=== PATIENT | female | born 1980 | race Caucasian/White ===

== ENCOUNTER 2017-01-13 17:47 | Emergency (ER) | payer SELFPAY ==
[~2017-01-13] VITALS: Ht 157.5 cm; Wt 55.0 kg
[~2017-01-13 17:47] MED LIST: LEVO750T26 PO
[2017-01-13] MEDS ORDERED: LORazepam 2 MG/ML, 1ML ONE ×2 (18:17→19:01)
[2017-01-13] MEDS ORDERED: PLEASE ENTER HEIGHT AND WEIGHT MC SCH (18:30)
[2017-01-13] MEDS ORDERED: PLEASE ENTER ALLERGIES MC SCH ×2 (18:30)
[2017-01-13] MEDS ORDERED: LORazepam 2 MG/ML, 1ML IVPush ONE ×2 (18:30→19:00)
[2017-01-13 18:48] LABS: ASPARTATE AMINO TRANSFERASE 68 U/L (15-37); BLOOD UREA NITROGEN 10 mg/dL (7-18)
[2017-01-13 18:51] LABS: ACETAMINOPHEN < 2 mcg/mL (10-30)
[2017-01-13 19:44] LABS: DAU SCREEN DISCLAIMER
[2017-01-14 01:01] VITALS: BP 107/70
== END 2017-01-14 03:19 | disposition home or self-care (01) ==
LOC: EDBD 23:19 → ED 23:19 → MERGE 23:19 → ED 01-14 03:19
DX: F23 Brief psychotic disorder (principal); F12.10 Cannabis abuse, uncomplicated; F15.10 Other stimulant abuse, uncomplicated
CPT/HCPCS: 36415; 80053; 80307; 80329; 81003; 85025; 93005; 96374; 96376; 99285; J2060; G0480

== ENCOUNTER 2017-01-17 12:37 | Observation (INO) | payer SELFPAY ==
[~2017-01-17] VITALS: Ht 152.4 cm; Wt 54.0 kg
[2017-01-17] MEDS ORDERED: ZIPRASIDONE 20 MG INJ IM ONE ×2 (12:56→13:00)
[2017-01-17] MEDS ORDERED: LORazepam 2 MG/ML, 1ML ONE (12:56)
[2017-01-17] MEDS ORDERED: LORazepam 2 MG/ML, 1ML IM ONE (13:00)
[2017-01-17 13:35] LABS: ASPARTATE AMINO TRANSFERASE 56 U/L (15-37); BLOOD UREA NITROGEN 22 mg/dL (7-18)
[2017-01-17 13:45] LABS: ACETAMINOPHEN < 2 mcg/mL (10-30)
[2017-01-17] MEDS ORDERED: LORazepam 1MG TABLET PO ONE (19:30)
[2017-01-17] MEDS ORDERED: BISACODYL 10 MG SUPP PR PRN (20:00)
[2017-01-17] MEDS ORDERED: DOCUSATE 100 MG CAPSULE PO PRN (20:00)
[2017-01-17] MEDS ORDERED: ACETAMINOPHEN 325 MG TABLET PO PRN (20:00)
[2017-01-17] MEDS ORDERED: POLYETHYLENE GLYCOL 17 GM PACKET PO PRN (20:00)
[2017-01-17] MEDS ORDERED: ONDANSETRON ODT 4 MG PO PRN (20:00)
[2017-01-17 21:40] LABS: DAU SCREEN DISCLAIMER
[2017-01-17] MEDS: ZIPRASIDONE 20MG CAPSULE PO PRN (22:26)
[2017-01-18 07:54] VITALS: BP 93/53
[2017-01-18 09:29] LABS: BLOOD UREA NITROGEN 19 mg/dL (7-18)
[2017-01-18] MEDS: ZIPRASIDONE 20MG CAPSULE PO PRN (11:26)
[2017-01-18 13:51] LABS: PATH.CAST-FLAG NOT PRESENT; SPERM-FLAG NOT PRESENT; SRC-FLAG NOT PRESENT; XTAL-FLAG NOT PRESENT; YLC-FLAG NOT PRESENT
[2017-01-18 13:54] LABS: HCG UR OBC PASS
[2017-01-18 15:57] VITALS: BP 105/67
[2017-01-18 19:28] VITALS: BP 104/69
[2017-01-19] MEDS: ZIPRASIDONE 20MG CAPSULE PO PRN (03:31)
[2017-01-19 07:25] VITALS: BP 110/53
[2017-01-19] MEDS ORDERED: NICOTINE 14MG/24 HR PATCH.TD24 ONE (18:08)
[2017-01-19 19:31] VITALS: BP 129/75
[2017-01-20 07:44] VITALS: BP 124/71
[2017-01-20 19:39] VITALS: BP 106/69
[2017-01-21 08:18] VITALS: BP 106/67
[2017-01-21] MEDS ORDERED: BISACODYL 10 MG SUPP PR PRN (19:30)
[2017-01-21] MEDS ORDERED: POLYETHYLENE GLYCOL 17 GM PACKET PO PRN (19:30)
[2017-01-21 20:18] VITALS: BP 130/93
[2017-01-21] MEDS: ACETAMINOPHEN 325 MG TABLET PO PRN (23:40)
[2017-01-22 08:24] VITALS: BP 112/80
[2017-01-22] MEDS: ACETAMINOPHEN 325 MG TABLET PO PRN (11:30)
[2017-01-22 19:49] VITALS: BP 111/74
[2017-01-22] MEDS ORDERED: MICONAZOLE 7 VAG. CRM 2%, 45GM VG SCH (21:00)
[2017-01-22] MEDS: ZIPRASIDONE 20MG CAPSULE PO PRN (21:24)
[2017-01-22] MEDS ORDERED: ALUMINUM/MAG/SIMETHICONE 30 ML UDC PO ONE (22:30)
[2017-01-23 07:25] VITALS: BP 128/82
[2017-01-23 10:51] VITALS: BP 99/69
== END 2017-01-23 12:00 ==
LOC: ED 14:13 → EDIP 21:08 → 3E 22:08
PROVIDERS: ADMIT Internal Medicine; ATTEND Internal Medicine
DX: F29 Unspecified psychosis not due to a substance or known physiological condition (principal); D72.829 Elevated white blood cell count, unspecified; N17.0 Acute kidney failure with tubular necrosis; D75.89 Other specified diseases of blood and blood-forming organs; N89.8 Other specified noninflammatory disorders of vagina; B37.3 Candidiasis of vulva and vagina; F20.9 Schizophrenia, unspecified; Z91.14 Patient's other noncompliance with medication regimen; Z91.83 Wandering in diseases classified elsewhere
CPT/HCPCS: 36415; 80048; 80053; 80307; 80329; 81001; 81025; 84443; 85025; 87086; 96372; 99285; G0378; J2060; J3486; Q0162; G0480

== ENCOUNTER 2017-03-26 04:23 | Emergency (ER) | payer MEDICAID, OTHER ==
[~2017-03-26] VITALS: Ht 149.9 cm; Wt 50.6 kg
[2017-03-26 04:25] VITALS: BP 123/79
== END 2017-03-26 05:29 | disposition home or self-care (01) ==
LOC: ED 05:03
DX: J20.8 Acute bronchitis due to other specified organisms (principal)
CPT/HCPCS: 99283

== ENCOUNTER 2017-08-25 19:38 | Emergency (ER) | payer MEDICAID ==
[~2017-08-25] VITALS: Ht 160 cm; Wt 50.0 kg
[2017-08-25] MEDS ORDERED: ZIPRASIDONE 20 MG INJ IM ONE ×2 (20:40→21:00)
[2017-08-25] MEDS ORDERED: PLEASE ENTER ALLERGIES MC SCH (21:00)
[2017-08-26 03:09] VITALS: BP 112/69
== END 2017-08-26 04:21 | disposition home or self-care (01) ==
LOC: EDBD → MERGE 19:38 → ED 23:59
DX: F15.129 Other stimulant abuse with intoxication, unspecified (principal)
CPT/HCPCS: 96372; 99283; J3486

== ENCOUNTER 2017-08-27 19:33 | Emergency (ER) | payer MEDICAID ==
[~2017-08-27] VITALS: Ht 152.4 cm; Wt 50.0 kg
[2017-08-27] MEDS ORDERED: HALOPERIDOL 5 MG/ML ONE (19:54)
[2017-08-27] MEDS ORDERED: DIPHENHYDRAMINE 50 MG/ML, 1ML ONE (19:54)
[2017-08-27] MEDS ORDERED: LORazepam 2 MG/ML, 1ML ONE ×2 (19:55→23:03)
[2017-08-27] MEDS ORDERED: SODIUM CHLORIDE 0.9% 1,000ML IVBOLUS ONE (20:00)
[2017-08-27] MEDS ORDERED: LORazepam 2 MG/ML, 1ML IM ONE (20:00)
[2017-08-27] MEDS ORDERED: HALOPERIDOL 5 MG/ML IM ONE (20:00)
[2017-08-27] MEDS ORDERED: DIPHENHYDRAMINE 50 MG/ML, 1ML IM ONE (20:00)
[2017-08-27] MEDS ORDERED: PLEASE ENTER HEIGHT AND WEIGHT MC SCH (20:00)
[2017-08-27 20:07] LABS: BASOPHILS # (AUTO) 0.08 x10^3/uL (0-0.1); BASOPHILS % (AUTO) 1 % (0-1); EOSINOPHILS # (AUTO) 0.07 x10^3/uL (0-0.4); EOSINOPHILS % (AUTO) 1 % (1-7); LYMPHOCYTES # (AUTO) 3.19 x10^3/uL (1-3.4); LYMPHOCYTES % (AUTO) 28 % (22-44); MD NO; MEAN CORPUSCULAR HEMOGLOBIN 28.5 pg (27.0-34.8); MEAN CORPUSCULAR HGB CONC 33.4 g/dL (32.4-35.8); MEAN CORPUSCULAR VOLUME 85.3 fL (80-100); MEAN PLATELET VOLUME 6.6 fL (7.4-10.4); MONOCYTES % (AUTO) 8 % (2-9); NEUTROPHILS # (AUTO) 7.07 x10^3/uL (1.8-6.8); NEUTROPHILS % (AUTO) 63 % (42-75); PLATELET COUNT 446 x10^3/uL (130-400); RED BLOOD COUNT 4.44 x10^6/uL (3.82-5.3); RED CELL DISTRIBUTION WIDTH 14.4 % (9.6-15.2)
[2017-08-27 20:15] LABS: ALBUMIN 3.5 g/dL (3.4-5.0); ANION GAP 9 mmol/L (5-15); CALCIUM 8.7 mg/dL (8.5-10.1); CHLORIDE 106 mmol/L (98-107); SALICYLATE LEVEL 2.9 mg/dL (2.8-20.0)
[2017-08-27 20:20] LABS: ALANINE AMINOTRANSFERASE 64 U/L (12-78); ALKALINE PHOSPHATASE 100 U/L (45-117); BILIRUBIN,TOTAL 0.3 mg/dL (0.2-1.0); CREATININE 0.89 mg/dL (0.55-1.02); TOTAL PROTEIN 7.7 g/dL (6.4-8.2)
[2017-08-27 20:23] LABS: ACETAMINOPHEN < 2 mcg/mL (10-30)
[2017-08-27] MEDS ORDERED: LORazepam 2 MG/ML, 1ML IVPush ONE (23:30)
[2017-08-28 05:24] VITALS: BP 124/72
== END 2017-08-28 05:26 | disposition home or self-care (01) ==
LOC: ED 20:36
DX: F19.151 Other psychoactive substance abuse with psychoactive substance-induced psychotic disorder with hallucinations (principal); F15.10 Other stimulant abuse, uncomplicated; Z72.9 Problem related to lifestyle, unspecified; F22 Delusional disorders
CPT/HCPCS: 36415; 80053; 80307; 80329; 84703; 85025; 96361; 96372; 96374; 99291; J1200; J1630; J2060; J7030; G0480

== ENCOUNTER 2017-09-03 10:27 | Emergency (ER) | payer MEDICAID ==
[2017-09-03] MEDS ORDERED: ZIPRASIDONE 20MG CAPSULE PO SCH (10:30)
[2017-09-03] MEDS ORDERED: ZIPRASIDONE 20MG CAPSULE ONE (10:34)
[2017-09-03] MEDS ORDERED: ZIPRASIDONE 20MG CAPSULE PO ONE (11:00)
== END 2017-09-03 11:10 | disposition left against medical advice (07) ==
LOC: ED 11:04
DX: F23 Brief psychotic disorder (principal)
CPT/HCPCS: 99284

== ENCOUNTER 2018-05-15 09:27 | Emergency (ER) | payer SELFPAY ==
[~2018-05-15] VITALS: Ht 165.1 cm; Wt 70.0 kg
[2018-05-15] MEDS ORDERED: LORazepam 2 MG/ML, 1ML ONE (09:49)
[2018-05-15] MEDS ORDERED: ZIPRASIDONE 20 MG INJ IM PRN (10:00)
[2018-05-15] MEDS ORDERED: LORazepam 2 MG/ML, 1ML IM ONE (10:00)
[2018-05-15 10:17] LABS: BASOPHILS # (AUTO) 0.07 x10^3/uL (0-0.1); BASOPHILS % (AUTO) 1 % (0-1); EOSINOPHILS # (AUTO) 0.05 x10^3/uL (0-0.4); EOSINOPHILS % (AUTO) 0 % (1-7); LYMPHOCYTES # (AUTO) 1.26 x10^3/uL (1-3.4); LYMPHOCYTES % (AUTO) 9 % (22-44); MD NO; MEAN CORPUSCULAR HGB CONC 34.2 g/dL (32.4-35.8); MEAN CORPUSCULAR VOLUME 87.8 fL (80-100); MEAN PLATELET VOLUME 6.7 fL (7.4-10.4); MONOCYTES # (AUTO) 0.75 x10^3/uL (0.2-0.8); MONOCYTES % (AUTO) 6 % (2-9); NEUTROPHILS # (AUTO) 11.65 x10^3/uL (1.8-6.8); NEUTROPHILS % (AUTO) 85 % (42-75); PLATELET COUNT 382 x10^3/uL (130-400); RED CELL DISTRIBUTION WIDTH 12.5 % (9.6-15.2)
[2018-05-15 10:30] LABS: ALBUMIN 3.9 g/dL (3.4-5.0); ANION GAP 9 mmol/L (5-15); CALCIUM 8.9 mg/dL (8.5-10.1); CHLORIDE 103 mmol/L (98-107)
[2018-05-15 10:31] LABS: SALICYLATE LEVEL < 1.7 mg/dL (2.8-20.0)
[2018-05-15] MEDS ORDERED: ZIPRASIDONE 20 MG INJ IM ONE (10:33)
[2018-05-15 10:34] LABS: ACETAMINOPHEN < 2 mcg/mL (10-30); ALANINE AMINOTRANSFERASE 53 U/L (12-78); ALKALINE PHOSPHATASE 99 U/L (45-117); BILIRUBIN,TOTAL 0.4 mg/dL (0.2-1.0); CREATININE 0.71 mg/dL (0.55-1.02); TOTAL PROTEIN 7.5 g/dL (6.4-8.2)
[2018-05-15] MEDS ORDERED: POTASSIUM CHLORIDE 20 MEQ TAB.ER.PRT PO ONE (12:30)
[2018-05-15 16:49] VITALS: BP 95/48
== END 2018-05-15 17:35 | disposition home or self-care (01) ==
LOC: ED 10:00
DX: F15.120 Other stimulant abuse with intoxication, uncomplicated (principal); E87.6 Hypokalemia
CPT/HCPCS: 36415; 70450; 71045; 80053; 80307; 80329; 85025; 96372; 99285; J2060; J3486; G0480

== ENCOUNTER 2018-06-16 17:11 | Emergency (ER) | payer MEDICAID, OTHER ==
[~2018-06-16] VITALS: Ht 160 cm; Wt 58.0 kg
[2018-06-16 18:04] VITALS: BP 119/65
== END 2018-06-16 19:52 | disposition home or self-care (01) ==
LOC: ED 18:03
DX: F15.229 Other stimulant dependence with intoxication, unspecified (principal); F20.9 Schizophrenia, unspecified
CPT/HCPCS: 99283

== ENCOUNTER 2018-07-26 03:55 | Emergency (ER) | payer OTHER ==
[~2018-07-26] VITALS: Ht 162.6 cm; Wt 45.5 kg
--- NOTE | 2018-07-26 04:11 | NUR ---
PT. AMBULATORY TO ED 40; PT. FLAILING AROUND AND ONLY MAKES GRUNTIG SOUNDS. UNABLE TO OBTAIN INFO; PT. STATES "TOO MUCH METH".
--- NOTE | 2018-07-26 04:16 | NUR ---
PT PRESENTED WITH C/O " I DID TOO MUCH METH", PT VERY RESTLESS AND MAKING GRUNTING NOISES, PT IRRATICALLY MAKING JERKING MOVEMENTS ON BED, PLACED MATTRESS ON FLOOR FOR PT SAFETY, AWAITING ERP FOR EVAL
--- NOTE | 2018-07-26 04:24 | NUR ---
FOUND PT WANDERING IN [place], ASSISTED PT BACK TO ROOM, PT ASKING FOR SNACKS, ABLE TO MAINTAIN OWN AIRWAY, GARAGE DOORS DOWN FOR PT SAFETY.
--- NOTE | 2018-07-26 04:31 | NUR ---
VS DONE AT THIS TIME, PT WITH PERIODS OF BEING ABLE TO BE STILL, ANY NOISE OR INTERACTIONS AND PT BECOMES UNABLE TO BE STILL. NOTED TO HAVE BRUISE R EYE, APPEAR OLDER, BRUISE NOTED R FORARM WELL. PT THEN ASKING FOR OMAR
[2018-07-26] MEDS ORDERED: ZIPRASIDONE 20 MG INJ IM ONE ×2 (04:43→05:00)
--- NOTE | 2018-07-26 04:55 | NUR ---
Jaycee cheng in [facility] - 07/26/18 at 0456 by HERRERA PROVIDED PT WITH PO FLUIDS, PT TOLERATED WELL, REID N/V
--- NOTE | 2018-07-26 04:55 | NUR ---
PT MEDICATED PER MAR
--- NOTE | 2018-07-26 05:13 | NUR ---
PT RESTING ON MATRESS WITH EYES CLOSED, SNORING, NADN, EQUAL CHEST RISE/FALL OBSERVED, WILL CONTINUE TO MONITOR
--- NOTE | 2018-07-26 06:21 | NUR ---
PT RESTING WITH EYES CLOSED, NADN, RESPIRATIONS EVEN AND UNLABORED, PROVIDED PT WITH WARM BLANKET, WILL CONTINUE TO MONITOR.
--- NOTE | 2018-07-26 06:48 | NUR ---
report given to nicolle martines
--- NOTE | 2018-07-26 07:10 | NUR ---
PT TWO PERSON ASSIST TO BATHROOM. PT VERY UNSTEADY AND NOT FOLLOWING COMMANDS. PT WALKED BACK TO ROOM. PT LAYING ON MATTRESS. ALL MONITORS ATTACHED. PT COVERED UP WITH BLANKETS. WILL CONTINUE TO MONITOR
--- NOTE | 2018-07-26 08:00 | NUR ---
PT STILL SLEEPING ON MATTRESS. RESPS EQUAL AND UNLABORED. NO ACUTE DISTRESS NOTED. WILL CONTINUE TO MONITOR.
--- NOTE | 2018-07-26 09:04 | NUR ---
PT SLEEPING ON MATTRESS. NO ACUTE DISTRESS NOTED. RESPS EQUAL AND UNLABORED. WILL CONTINUE TO MONITOR.
--- NOTE | 2018-07-26 09:12 | NUR ---
DIET TRAY DELIVERED TO PT
--- NOTE | 2018-07-26 10:21 | NUR ---
PT SLEEPING ON MATTRESS. RESPS EQUAL AND UNLABORED. NO ACUTE DISTRESS NOTED. PT HAS REMOVED SOME MONITORS. WILL CONTINUE TO MONITOR.
[2018-07-26 10:22] VITALS: BP 116/66
--- NOTE | 2018-07-26 12:14 | NUR ---
PT AMBULATORY WITH ASSISTANCE TO BATHROOM. PT ALERT. PT STATES "MY BALANCE IS A LITTLE OFF STILL." PT ATE DIET TRAY. NO ACUTE DISTRESS NOTED.
--- NOTE | 2018-07-26 13:07 | NUR ---
Patient/Caregiver given discharge instructions and they have confirmed that they understand the instructions. Patient ambulatory with steady gait. PT GIVEN SOCKS. PT LEFT WITH ALL PERSONAL BELONGINGS.
== END 2018-07-26 13:09 | disposition home or self-care (01) ==
LOC: ED 04:39
DX: T43.625A Adverse effect of amphetamines, initial encounter (principal); F20.9 Schizophrenia, unspecified; Z72.9 Problem related to lifestyle, unspecified; Z87.09 Personal history of other diseases of the respiratory system; Y92.89 Other specified places as the place of occurrence of the external cause
CPT/HCPCS: 96372; 99283; J3486

== ENCOUNTER 2018-07-30 15:08 | Emergency (ER) | payer OTHER ==
[~2018-07-30] VITALS: Ht 157.5 cm; Wt 45.0 kg
--- NOTE | 2018-07-30 15:08 | NUR ---
BECKIE from [facility] ([place]) after [employer] called, pt delirious with nonsensical speech/gibberish & occas shouting of profanity, does not answer questions or follow commands, very restless with constant thrashing on gurney, arrived in 4-pt restraints & continued on arrival for pt safety, no personal belongings on arrival; cardiac, NIBP & SpO2 monitors in place- unable to obtain BP d/t pt thrashing; comfort measures provided, will continue to monitor frequently.
[2018-07-30] MEDS ORDERED: ZIPRASIDONE 20 MG INJ IM ONE ×2 (15:54→16:00)
[2018-07-30] MEDS ORDERED: LORazepam 2 MG/ML, 1ML ONE ×2 (15:55→23:12)
[2018-07-30 16:00] LABS: BASOPHILS # (AUTO) 0.06 x10^3/uL (0-0.1); BASOPHILS % (AUTO) 0 % (0-1); EOSINOPHILS # (AUTO) 0.04 x10^3/uL (0-0.4); EOSINOPHILS % (AUTO) 0 % (1-7); LYMPHOCYTES # (AUTO) 1.87 x10^3/uL (1-3.4); LYMPHOCYTES % (AUTO) 13 % (22-44); MD NO; MEAN CORPUSCULAR HEMOGLOBIN 28.5 pg (27.0-34.8); MEAN CORPUSCULAR HGB CONC 33.1 g/dL (32.4-35.8); MEAN CORPUSCULAR VOLUME 86.3 fL (80-100); MEAN PLATELET VOLUME 6.4 fL (7.4-10.4); MONOCYTES # (AUTO) 1.08 x10^3/uL (0.2-0.8); MONOCYTES % (AUTO) 7 % (2-9); NEUTROPHILS % (AUTO) 80 % (42-75); PLATELET COUNT 461 x10^3/uL (130-400); RED BLOOD COUNT 4.35 x10^6/uL (3.82-5.3); RED CELL DISTRIBUTION WIDTH 14.3 % (9.6-15.2)
[2018-07-30] MEDS ORDERED: LORazepam 2 MG/ML, 1ML IM ONE ×2 (16:00→23:30)
--- NOTE | 2018-07-30 16:02 | NUR ---
pt continues to thrash around on gurney with mostly incoherent yelling out, med icated per eMAR. NAD, comfort measures provided, pt remains in 4-pt restraints, will continue to monitor frequently.
[2018-07-30 16:10] LABS: ALANINE AMINOTRANSFERASE 62 U/L (12-78); ALBUMIN 3.7 g/dL (3.4-5.0); ANION GAP 5 mmol/L (5-15); CALCIUM 9.3 mg/dL (8.5-10.1); CHLORIDE 103 mmol/L (98-107); CREATININE 0.81 mg/dL (0.55-1.02)
[2018-07-30 16:21] LABS: ALKALINE PHOSPHATASE 96 U/L (45-117); BILIRUBIN,TOTAL 0.4 mg/dL (0.2-1.0); SALICYLATE LEVEL 3.5 mg/dL (2.8-20.0); TOTAL PROTEIN 7.3 g/dL (6.4-8.2)
[2018-07-30 16:33] LABS: ACETAMINOPHEN < 2 mcg/mL (10-30)
--- NOTE | 2018-07-30 17:01 | NUR ---
pt sleeping calmly on gurney, NAD with equal chest rise/fall, VSS (see Behavior Management Restraint Reocrd), no needs at this time, pt remains in 4-pt restraints, will continue to monitor frequently.
--- NOTE | 2018-07-30 18:00 | NUR ---
pt continues to sleep calmly on gurney, NAD with equal chest rise/fall, no needs at this time, pt remains in 4-pt restraints, will continue to monitor frequently. Addendum: 07/30/18 at 1814 by NATALIE pt continues to mostly sleep calmly on gurney but restless at times, NAD with equal chest rise/fall, no needs at this time, pt remains in 4-pt restraints, will continue to monitor frequently.
--- NOTE | 2018-07-30 19:07 | NUR ---
report given to Neo
--- NOTE | 2018-07-30 19:15 | NUR ---
RESTRAINT ORDER RENEWED WITH MD RGEENBERG. DID EVAL AT BEDSIDE. RESTRAINTS WERE CHECKED AT THIS TIME AND ONE HOLDING UPPER EXTREMITY WAS TOO TIGHT, SO WAS LOOSENED FOR PT. PT STILL REMAINS IN RESTRAINT DUE SAFETY ISSUES.
--- NOTE | 2018-07-30 20:24 | NUR ---
PT REMAINS IN RESTRAINTS. PT IS STILL VERY ERRATIC WITH POSTURING TOWARDS STAFF. WILL REEVALUATE IN 30 MINUTES.
--- NOTE | 2018-07-30 22:27 | NUR ---
PT REMAINS RESTLESS, PULLING AT RESTRAINTS. PT UNABLE TO RECOGNIZE STAFF STILL. PT SPEAKING INCOHERENTLY. PT UNABLE TO FOLLOW COMMANDS AND UNABLE TO IVY DOWN. PT AT THIS TIME TO REMAIN IN RESTRAINTS SHE POSES DANGER TO SELF AND STAFF DUE TO POSSIBLE ACUTE PSYCHOSIS SECODNARY TO DRUG ABUSE PER MD.
--- NOTE | 2018-07-30 22:37 | NUR ---
MD RAMÍREZ ASKED FOR RESTRAINT EXTENTION PT IS NOT READY TO BE REMOVED FROM RESTRAINTS AT THIS TIME. ORDER GIVEN AND SIGNED.
--- NOTE | 2018-07-30 23:00 | NUR ---
PT SPEAKING MORE CLEARLY. STILL UNABLE TO FORM COMPLETE SENTANCES BUT WORDS ARE UNDERSTANDABLE. PT GIVEN 2MG IM ATIVIAN TO HELP CALM DOWN SHE IS VERY ANXIOUS AND MANIC. PT SAID "I WANT TO SLEEP, SLEEP, SLEEP" SO PT TAKEN OUT OF RESTRAINTS AND PT REMAINS IN BED AT THIS TIME. WILL CONTINUE TO MONITOR.
--- NOTE | 2018-07-30 23:45 | NUR ---
Jaycee cheng in ED - 07/30/18 at 2346 by SUSI PT THANH IN BED THAT IS A CAMERA ROOM. GEOVANY, EQUAL CHEST RISE AND GOOD CAP REFILL.
--- NOTE | 2018-07-30 23:46 | NUR ---
PT REMIAINS IN BED THAT IS A CAMERA ROOM. NADN, EQUAL CHEST RISE AND GOOD CAP REFILL.
--- NOTE | 2018-07-31 00:17 | NUR ---
RECEIVED REPORT FROM ALEJO DE LA TORRE. PT. CURLED UP IN POSITION LEFT SIDE LYING. EVEN CHEST RISE/FALL VISIBLE. PT. HAS CONTINUOUS PULSE OX, B/P, AND HEART MONITORS IN PLACE. ALL SAFETY MEASURES OBSERVED.
--- NOTE | 2018-07-31 01:24 | NUR ---
PT. RESTING ON GURNEY IN POSITION RIGHT SIDE LYING. PT. HAS CONTINUOUS PULSE OX, B/P, AND HEART MONITORS IN PLACE. ALL SAFETY MEASUERS OSBERVED.
[2018-07-31 02:25] VITALS: BP 125/65
== END 2018-07-31 02:38 | disposition home or self-care (01) ==
LOC: ED 15:30
DX: R45.1 Restlessness and agitation (principal)
CPT/HCPCS: 36415; 80053; 80307; 80329; 84703; 85025; 96372; 99283; J2060; J3486; G0480

== ENCOUNTER 2018-08-11 00:11 | Emergency (ER) | payer SELFPAY ==
[~2018-08-11] VITALS: Ht 157.5 cm; Wt 50.0 kg
[2018-08-11 00:15] VITALS: BP 103/69
[2018-08-11] MEDS ORDERED: ZIPRASIDONE 20 MG INJ IM ONE ×2 (00:22→00:30)
--- NOTE | 2018-08-11 00:27 | NUR ---
PT BIBA IN [facility] RESTRAINTS DUE TO AGGITATION. PT WAS FOUND BY [employer] HIDING IN A DUMPSTER WITHOUT PANTS. PT IS ACUTELY INTOXICATED AND STATES "I DO METH AND BREAK INTO HOUSES." PT DOES NOT RESPOND APPROPRIATELY. YELLS INCOMPREHENSIBLE WORDS. PT IS AGGITATED AND UNCOOPERATIVE WITH TREATMENT ATT.
[2018-08-11 00:35] LABS: BASOPHILS # (AUTO) 0.02 x10^3/uL (0-0.1); BASOPHILS % (AUTO) 0 % (0-1); EOSINOPHILS # (AUTO) 0.01 x10^3/uL (0-0.4); EOSINOPHILS % (AUTO) 0 % (1-7); LYMPHOCYTES # (AUTO) 1.88 x10^3/uL (1-3.4); LYMPHOCYTES % (AUTO) 17 % (22-44); MD NO; MEAN CORPUSCULAR HEMOGLOBIN 28.3 pg (27.0-34.8); MEAN CORPUSCULAR VOLUME 83.4 fL (80-100); MEAN PLATELET VOLUME 6.5 fL (7.4-10.4); MONOCYTES # (AUTO) 0.88 x10^3/uL (0.2-0.8); MONOCYTES % (AUTO) 8 % (2-9); NEUTROPHILS # (AUTO) 8.19 x10^3/uL (1.8-6.8); NEUTROPHILS % (AUTO) 75 % (42-75); PLATELET COUNT 433 x10^3/uL (130-400); RED BLOOD COUNT 4.51 x10^6/uL (3.82-5.3); RED CELL DISTRIBUTION WIDTH 15.3 % (9.6-15.2)
--- NOTE | 2018-08-11 00:35 | NUR ---
PT MEDICATED PER EMAR
[2018-08-11 00:47] LABS: ALANINE AMINOTRANSFERASE 46 U/L (12-78); ALBUMIN 3.6 g/dL (3.4-5.0); ANION GAP 10 mmol/L (5-15); CALCIUM 9.3 mg/dL (8.5-10.1); CHLORIDE 103 mmol/L (98-107); SALICYLATE LEVEL 2.1 mg/dL (2.8-20.0)
[2018-08-11 00:49] LABS: ALKALINE PHOSPHATASE 103 U/L (45-117); BILIRUBIN,TOTAL 0.4 mg/dL (0.2-1.0); TOTAL PROTEIN 7.2 g/dL (6.4-8.2)
[2018-08-11 00:55] LABS: ACETAMINOPHEN < 2 mcg/mL (10-30)
--- NOTE | 2018-08-11 02:00 | NUR ---
PT IS CALMER AND MORE COOPERATIVE ATT. ABLE TO ANSWER QUESTIONS APPROPRIATELY. PT RELEASED FROM RESTRAINTS AND PROVIDED WITH FOOD AND WATER.
--- NOTE | 2018-08-11 02:46 | NUR ---
PT REPORT FROM TRISH DHILLON. THIS RN TO ASSUME CARE OF PT. PT RESTING COMFORTABLY ON GURNEY. ROLLER DOORS IN PLACE. CALL LIGHT WITHIN REACH.
--- NOTE | 2018-08-11 05:19 | NUR ---
PT COHERENT AND A+Ox4. GIVEN SOCKS AND PANTS FOR D/C. STATES READY TO D/C.
== END 2018-08-11 05:25 | disposition home or self-care (01) ==
LOC: EDBD 00:11 → ED 03:56 → MERGE 03:56 → ED 05:25
DX: F29 Unspecified psychosis not due to a substance or known physiological condition (principal); F22 Delusional disorders; F15.129 Other stimulant abuse with intoxication, unspecified; F24 Shared psychotic disorder
CPT/HCPCS: 36415; 80053; 80307; 80329; 85025; 96372; 99284; J3486; G0480

== ENCOUNTER 2018-08-13 13:40 | Emergency (ER) | payer SELFPAY ==
[~2018-08-13] VITALS: Ht 160 cm; Wt 115.0 kg
[2018-08-13] MEDS ORDERED: LORazepam 1MG TABLET ONE (13:49)
--- NOTE | 2018-08-13 13:59 | NUR ---
LAURA CALLED FOR SITTER FOR PT'S SAFETY D/T PT'S CONTINUOUS ERRATIC MOVEMENTS D/T DRUG USE
[2018-08-13 14:00] VITALS: BP 120/83
[2018-08-13] MEDS ORDERED: LORazepam 1MG TABLET PO ONE (14:00)
--- NOTE | 2018-08-13 14:07 | NUR ---
PT BIB [facility] AFTER MULTIPLE CALLS FOR ERRATIC BEHAVIOR. PT HAS NO MEDICAL COMPLAINTS, REPORTS USING CRYSTAL METH TODAY, BEHAVING THOUGH SHE DID METH TODAY.
--- NOTE | 2018-08-13 15:13 | NUR ---
PROVIDED PT WITH NEW PANTS
[2018-08-13] MEDS ORDERED: MIDAZOLAM 1 MG/ML, 2ML ONE (16:57)
== END 2018-08-13 15:31 | disposition left against medical advice (07) ==
LOC: ED 15:25
DX: F15.959 Other stimulant use, unspecified with stimulant-induced psychotic disorder, unspecified (principal); F20.9 Schizophrenia, unspecified
CPT/HCPCS: 99283

== ENCOUNTER 2018-08-13 16:22 | Emergency (ER) | payer SELFPAY ==
[~2018-08-13] VITALS: Ht 157.5 cm; Wt 50.0 kg
[2018-08-13] MEDS ORDERED: LORazepam 1MG TABLET ONE (16:34)
[2018-08-13] MEDS ORDERED: LORazepam 1MG TABLET PO ONE (17:00)
[2018-08-13] MEDS ORDERED: MIDAZOLAM 1 MG/ML, 5ML IM ONE (17:00)
--- NOTE | 2018-08-13 18:27 | NUR ---
pt is resting on gurney. rr even and unlabored. pt on cont. spo2 and bp monitor, vss. pt denies needs or pain att.
--- NOTE | 2018-08-13 18:57 | NUR ---
BS REPORT OF PT FROM ALEJO CHAMBERS, AND ASSUMING CARE OF PT.
--- NOTE | 2018-08-13 21:09 | NUR ---
pt sleeping in gurney; pt under observation for substance abuse, and being monitored as such. Call light is within reach.
[2018-08-13 21:38] VITALS: BP 100/63
--- NOTE | 2018-08-13 23:21 | NUR ---
pt d/c with d/c summary. pt provided socks and warm sweater and put in a taxi with [facility] taxi voucher for d/c to homeless half-way. pt escorted out front into taxi by security.
== END 2018-08-13 23:24 | disposition home or self-care (01) ==
LOC: ED 16:59
DX: F15.129 Other stimulant abuse with intoxication, unspecified (principal)
CPT/HCPCS: 96372; 99283; J2250

== ENCOUNTER 2018-08-21 06:23 | Emergency (ER) | payer SELFPAY ==
[~2018-08-21] VITALS: Ht 157.5 cm; Wt 44.7 kg
[2018-08-21 06:30] VITALS: BP 121/76
--- NOTE | 2018-08-21 06:30 | NUR ---
38 YR OLD FEMALE ARRIVED VIA LAW ENFORCEMENT. PT WITH NO CLOTHS ON FROM WAIST DOWN. NO SOCKS OR SHOES ON. PT WITH RAMBLING SPEECH. PT MOVES SELF FREQUENTLY ON GURNEY. NOT ANSWERING QUESTIONS. PT COOPERATIVE WITH UPPER CLOTHING REMOVAL. PLACED IN HOSPITAL GOWN, PROVIDED WITH WARM BLANKETS. ROOM SECURED, SITTER AT DOOR.
--- NOTE | 2018-08-21 06:35 | NUR ---
DR VUONG AT BEDSIDE TO EVAL PT.
--- NOTE | 2018-08-21 06:43 | NUR ---
ONE BAG OF CLOTHING TO LOCKED CABINET.
[2018-08-21] MEDS ORDERED: ZIPRASIDONE 20 MG INJ IM ONE ×2 (07:00→07:12)
--- NOTE | 2018-08-21 07:01 | NUR ---
REPORT TO JALEN DHILLON
--- NOTE | 2018-08-21 07:27 | NUR ---
Provided medication per EMAR. Provided chapstick for pt per request. Pt continues to hace incoherent and irradict speech with statments such as, "I am going to wail on you, I will fucking kill you." Pt requesting food. SI food tray ordered for breakfast. Sitter near doorway in direct line of sight for observation. NADN. All SI/HI precautions in place for safety.
--- NOTE | 2018-08-21 09:01 | NUR ---
Pt sleeping on gurindiana. NADN. No needs expressed. Sitter near doorway in direct line of sight for observation.
--- NOTE | 2018-08-21 10:18 | NUR ---
Pt provided snacks per request. Sitter near doorway in direct line of sight for observation. NADN. No needs expressed at this time.
--- NOTE | 2018-08-21 11:05 | NUR ---
Pt has been taken off hold by EDID. Pt has been medically cleared by EDID. Pt provided clothing, shoes, underwear, and socks for discharge. Pt ambulated with steady gait and balance to restroom. Pt's speech is coherent. Pt is getting dressed in ED room at this time. Pt provided with personal belongings.
--- NOTE | 2018-08-21 11:21 | NUR ---
Patient given discharge instructions and they have confirmed that they understand the instructions. Patient ambulatory with steady gait. Pt left with all personal belongings, extra snacks, clothing from ER donation closet, and shoes, and discharge paperwork. Pt walked to discharge desk. Pt appreciative.
== END 2018-08-21 11:24 | disposition home or self-care (01) ==
LOC: ED 07:35
DX: F15.929 Other stimulant use, unspecified with intoxication, unspecified (principal); F20.9 Schizophrenia, unspecified
CPT/HCPCS: 96372; 99283; J3486

== ENCOUNTER 2018-09-16 09:57 | Observation (INO) | payer SELFPAY ==
[~2018-09-16] VITALS: Ht 162.6 cm; Wt 60.0 kg
--- NOTE | 2018-09-16 10:12 | NUR ---
BIB [facility]-placed on [address] by [employer] officer who found pt walking in the street with no shoes, dirty, disheveled, agitated. Pt apparently was screaming at unseen persons that she was going to kill them. Pt was violent with EMS (punching, kicking) and was given Versed x2 PRODUCTION RECORDER. Pt presents to ED drowsy, arousable to verbal stimuli, intermittently agitated/aggressive with staff intervention. All pt clothing removed, placed in one bag, labeled and secured in locker. Pt placed in hospital gown and positioned for comfort in bed with blanket. Continuous oxygen and BP monitors applied, all safety measures observed.
[2018-09-16 10:49] LABS: BASOPHILS # (AUTO) 0.03 x10^3/uL (0-0.1); BASOPHILS % (AUTO) 0 % (0-1); EOSINOPHILS # (AUTO) 0.14 x10^3/uL (0-0.4); EOSINOPHILS % (AUTO) 2 % (1-7); LYMPHOCYTES # (AUTO) 1.32 x10^3/uL (1-3.4); LYMPHOCYTES % (AUTO) 19 % (22-44); MD NO; MEAN CORPUSCULAR HGB CONC 34.3 g/dL (32.4-35.8); MEAN CORPUSCULAR VOLUME 84.7 fL (80-100); MEAN PLATELET VOLUME 6.4 fL (7.4-10.4); MONOCYTES # (AUTO) 0.48 x10^3/uL (0.2-0.8); MONOCYTES % (AUTO) 7 % (2-9); NEUTROPHILS # (AUTO) 4.96 x10^3/uL (1.8-6.8); NEUTROPHILS % (AUTO) 72 % (42-75); PLATELET COUNT 431 x10^3/uL (130-400); RED BLOOD COUNT 4.51 x10^6/uL (3.82-5.3); RED CELL DISTRIBUTION WIDTH 15.7 % (9.6-15.2)
[2018-09-16 11:00] LABS: ALANINE AMINOTRANSFERASE 27 U/L (12-78); ALBUMIN 3.1 g/dL (3.4-5.0); ANION GAP 5 mmol/L (5-15); CALCIUM 8.9 mg/dL (8.5-10.1); CHLORIDE 109 mmol/L (98-107); CREATININE 0.81 mg/dL (0.55-1.02)
[2018-09-16 11:01] LABS: SALICYLATE LEVEL < 1.7 mg/dL (2.8-20.0)
[2018-09-16 11:02] LABS: ALKALINE PHOSPHATASE 132 U/L (45-117); BILIRUBIN,TOTAL 0.2 mg/dL (0.2-1.0); TOTAL PROTEIN 6.6 g/dL (6.4-8.2)
[2018-09-16 11:03] LABS: ACETAMINOPHEN < 2 mcg/mL (10-30)
--- NOTE | 2018-09-16 11:11 | NUR ---
Pt resting in bed with eyes closed, resp even and unlabored, NADN. Room remains secured, sitter within eyesight.
--- NOTE | 2018-09-16 12:01 | NUR ---
Pt continues resting in bed with eyes closed, resp even and unlabored, NADN. Room remains secured, sitter within eyesight.
--- NOTE | 2018-09-16 12:58 | NUR ---
Pt ambulatory to bathroom with steady gait. Requested pt collect urine sample. Pt verbalizes understanding.
--- NOTE | 2018-09-16 13:06 | NUR ---
Pt did not collect urine sample while in the bathroom, voided into toilet instead. Pt ambulatory back to room. Pt requesting food. Meal tray ordered. Room remains secured, sitter within eyesight.
[2018-09-16] MEDS ORDERED: HALOPERIDOL 5 MG/ML IM STA (13:27)
[2018-09-16] MEDS ORDERED: SODIUM CHLORIDE 0.9% 1,000 ML IV SCH (14:00)
[2018-09-16] MEDS ORDERED: HALOPERIDOL 5 MG/ML IVPush PRN (14:00)
[2018-09-16] MEDS ORDERED: ONDANSETRON ODT 4 MG PO PRN (14:00)
[2018-09-16] MEDS ORDERED: ACETAMINOPHEN 325 MG TABLET PO PRN (14:00)
[2018-09-16] MEDS ORDERED: POTASSIUM CHLORIDE 20 MEQ TAB.ER.PRT PO ONE (14:00)
[2018-09-16] MEDS ORDERED: LORazepam 2 MG/ML, 1ML IVPush PRN (14:00)
[2018-09-16] MEDS ORDERED: ONDANSETRON 2MG/ML, 2ML IVPush PRN (14:00)
--- NOTE | 2018-09-16 14:35 | NUR ---
PT REPORT FROM ALEJO CALLEJAS. PT CARE TO BE ASSUMED. PT CURRENTLY IN BR; SITTER AT DOOR.
--- NOTE | 2018-09-16 15:00 | NUR ---
PT ALTERNATING BETWEEN CALMNESS & YELLING, WALKING AROUND ROOM & SITTING ON GURNEY. HAVING CONVERSATION W/ SELF. SITTER AT ROOM.
[2018-09-16] MEDS ORDERED: HALOPERIDOL 5 MG/ML ONE (15:23)
--- NOTE | 2018-09-16 15:35 | NUR ---
HALDOL DOSE CONFIRMED W/ DR MONTANEZ: 10MG IM. SECURITY CALLED
--- NOTE | 2018-09-16 15:41 | NUR ---
SECURITY TO BS. HALODOL IM GIVEN PER EMAR.
--- NOTE | 2018-09-16 17:27 | NUR ---
LUNCH RN: PT RESTING IN BED. NADN. EQUAL CHEST RISE AND GOOD CAP REFILL. SITTER OUTSIDE ROOM FOR CONTINOUS MONITORING.
--- NOTE | 2018-09-16 17:35 | NUR ---
PT REPORT FROM BRITT Talbert RN. PT CARE TO BE ASSUMED. PT ASLEEP ON BED, RESP EVEN & UNLABORED, SIDE RAIL UP X1. SITTER AT ROOM. PER SITTER, PT GOT UP TWICE TO USE BATHROOM, NO URINE SPECIMEN PROVIDED.
[2018-09-16 18:52] LABS: AMPHETAMINE SCREEN, URINE Positive (Negative); BARBITURATE SCREEN, URINE Negative (Negative); BENZODIAZEPINE SCREEN, URINE Positive (Negative); CANNABINOID SCREEN, URINE Negative (Negative); COCAINE SCREEN, URINE Negative (Negative); METHADONE SCREEN, URINE Negative (Negative)
[2018-09-16 18:53] LABS: OPIATE SCREEN, URINE Negative (Negative)
[2018-09-16] MEDS ORDERED: POTASSIUM CHLORIDE 20 MEQ TAB.ER.PRT ONE (19:00)
--- NOTE | 2018-09-16 19:44 | NUR ---
PACKET WAS FAXED TO [facility] AND COMPLETED AT [id number].
--- NOTE | 2018-09-16 19:55 | NUR ---
PT DOZING ON BED; EASILY AWAKENED. SIDE RAIL UP X1. SITTER AT ROOM.
[2018-09-16] MEDS ORDERED: HALOPERIDOL 5 MG/ML IM PRN (20:00)
[2018-09-16] MEDS ORDERED: LORazepam 2 MG/ML, 1ML IM PRN (20:00)
--- NOTE | 2018-09-16 20:30 | NUR ---
DOZING ON BED, SIDE RAIL UP X1, RESP EVEN & UNLABORED, SITTER AT ROOM.
--- NOTE | 2018-09-16 21:09 | NUR ---
DINNER DELIVERED TO PT. PT NON-CONFRONTATIONAL, AT THIS TIME.
--- NOTE | 2018-09-16 21:45 | NUR ---
PT EVALUATED BY ALEJO ABURTO (2N)
--- NOTE | 2018-09-16 22:00 | NUR ---
PT TO BE ADMITTED TO 2N. PT REPORT TO ALEJO ABURTO FOR 2N.
[2018-09-16 22:20] VITALS: BP 106/63
[2018-09-16 22:32] VITALS: BP 106/63
[2018-09-17 05:43] LABS: BASOPHILS # (AUTO) 0.03 x10^3/uL (0-0.1); BASOPHILS % (AUTO) 0 % (0-1); EOSINOPHILS # (AUTO) 0.17 x10^3/uL (0-0.4); EOSINOPHILS % (AUTO) 3 % (1-7); LYMPHOCYTES # (AUTO) 1.95 x10^3/uL (1-3.4); LYMPHOCYTES % (AUTO) 30 % (22-44); MD NO; MEAN CORPUSCULAR HEMOGLOBIN 28.8 pg (27.0-34.8); MEAN CORPUSCULAR HGB CONC 33.9 g/dL (32.4-35.8); MEAN CORPUSCULAR VOLUME 85.1 fL (80-100); MEAN PLATELET VOLUME 6.3 fL (7.4-10.4); MONOCYTES # (AUTO) 0.48 x10^3/uL (0.2-0.8); MONOCYTES % (AUTO) 7 % (2-9); NEUTROPHILS # (AUTO) 3.97 x10^3/uL (1.8-6.8); NEUTROPHILS % (AUTO) 60 % (42-75); PLATELET COUNT 406 x10^3/uL (130-400); RED BLOOD COUNT 4.46 x10^6/uL (3.82-5.3); RED CELL DISTRIBUTION WIDTH 16.3 % (9.6-15.2)
[2018-09-17 05:48] LABS: ANION GAP 6 mmol/L (5-15); CALCIUM 8.9 mg/dL (8.5-10.1); CHLORIDE 110 mmol/L (98-107); CREATININE 0.85 mg/dL (0.55-1.02)
[2018-09-17 07:37] VITALS: BP 108/66
[2018-09-17 20:23] VITALS: BP 98/61
[2018-09-18 07:45] VITALS: BP 111/72
== END 2018-09-18 12:04 ==
LOC: ED 13:56 → EDIP 14:19 → 2N 22:11
PROVIDERS: ADMIT Internal Medicine; ATTEND Emergency Medicine
DX: F29 Unspecified psychosis not due to a substance or known physiological condition (principal); D47.3 Essential (hemorrhagic) thrombocythemia; E87.6 Hypokalemia; F20.9 Schizophrenia, unspecified; F15.159 Other stimulant abuse with stimulant-induced psychotic disorder, unspecified; F10.129 Alcohol abuse with intoxication, unspecified; F31.9 Bipolar disorder, unspecified; N89.8 Other specified noninflammatory disorders of vagina; Z91.83 Wandering in diseases classified elsewhere
CPT/HCPCS: 36415; 76801; 80048; 80053; 80307; 80329; 81025; 83735; 84702; 85025; 93005; 96372; 99284; G0378; J1630; G0480

== ENCOUNTER 2018-09-26 22:13 | Emergency (ER) | payer MEDICAID, OTHER ==
[~2018-09-26] VITALS: Ht 151.1 cm; Wt 48.9 kg
[2018-09-26 22:17] VITALS: BP 135/90
--- NOTE | 2018-09-26 22:34 | NUR ---
PT HERE FOR LARGE VAGINAL DISCHARGE, NOT BLOOD. WHEN ASKED, STATED 'I' HERE FOR A PELVIC EXAM'. AA&O, VERY DIRECT ANSWERS. WHEN ASKED IF SHE COULD BE , PT STATED SHE RECENTLY HAD A BABY AND RECENTLY GOT RID OF A 3 MONTH OLD. SAFETY MEASURES IN PLACE, CALL LIGHT IN REACH
--- NOTE | 2018-09-26 23:55 | NUR ---
WENT TO GET PT URINE, FOUND PT HAD ELOPED, NOTIFIED
== END 2018-09-26 23:59 | disposition left against medical advice (07) ==
LOC: ED 23:05
DX: R30.0 Dysuria (principal); F17.200 Nicotine dependence, unspecified, uncomplicated
CPT/HCPCS: 99281

== ENCOUNTER 2018-10-01 08:11 | Emergency (ER) | payer MEDICAID ==
[~2018-10-01] VITALS: Ht 149.9 cm; Wt 50.0 kg
[2018-10-01 08:14] VITALS: BP 121/79
--- NOTE | 2018-10-01 08:19 | NUR ---
Pt ambulates to ED room from triage with steady gait and balance.
--- NOTE | 2018-10-01 08:28 | NUR ---
PT AMBULATORY TO ROOM T1 W/ C/O BILAT KNEE PAIN AFTER PT HAD MGLF 1 WK AGO. DENIED FEELING DIZZY/LIGHTHEADED PRIOR TO FALL. DENIES LOC. PT STATES SHE HIT HER L SIDE OF HEAD. NO NEURO DEFECITS/DARLING. PT STATES "I NEED TO BE CHECKED IN FOR A COUPLE DAYS". PT RESTING ON GURNEY. NADN. WARM BLANKET PROVIDED.
--- NOTE | 2018-10-01 08:30 | NUR ---
MYA ACOSTA AT BEDSIDE.
--- NOTE | 2018-10-01 08:37 | NUR ---
PT AMBULATORY TO THE NURSES STATION W/ STEADY GAIT AND BACK TO ROOM.
--- NOTE | 2018-10-01 08:47 | NUR ---
Pt transported on [facility] to x-ray.
--- NOTE | 2018-10-01 09:33 | NUR ---
Pt back to room resting on gurMoneyMail. Pt requesting food. Provided extra SI food tray for pt. Pt appreciative.
== END 2018-10-01 10:17 | disposition home or self-care (01) ==
LOC: ED 09:06
DX: S80.02XA Contusion of left knee, initial encounter (principal); S80.01XA Contusion of right knee, initial encounter; F20.9 Schizophrenia, unspecified; W01.0XXA Fall on same level from slipping, tripping and stumbling without subsequent striking against object, initial encounter; Y93.89 Activity, other specified; Y92.89 Other specified places as the place of occurrence of the external cause; Y99.8 Other external cause status
CPT/HCPCS: 29505; 99283

== ENCOUNTER 2018-10-03 15:36 | Emergency (ER) | payer MEDICAID ==
[~2018-10-03] VITALS: Ht 149.9 cm; Wt 52.2 kg
[2018-10-03 15:46] VITALS: BP 120/81
--- NOTE | 2018-10-03 17:28 | NUR ---
ELECTRICAL WORKER: PER LAB, CALLED 3 TIMES, CALLED 1700, 1730, NO ANSWER
== END 2018-10-03 17:31 | disposition left against medical advice (07) ==
LOC: ED 17:25
DX: R00.2 Palpitations (principal); R07.9 Chest pain, unspecified
CPT/HCPCS: 71046; 93005; 99283

== ENCOUNTER 2018-10-04 05:15 | Emergency (ER) | payer MEDICAID ==
[~2018-10-04] VITALS: Ht 154.9 cm; Wt 53.2 kg
[2018-10-04 05:17] VITALS: BP 127/86
--- NOTE | 2018-10-04 05:50 | NUR ---
PT SEEN WALKING OUT THE FRONT DOOR WITH STEADY GAIT.
--- NOTE | 2018-10-04 06:13 | NUR ---
PT HAS NOT RETURNED
== END 2018-10-04 06:15 | disposition left against medical advice (07) ==
LOC: ED 05:33
DX: F15.959 Other stimulant use, unspecified with stimulant-induced psychotic disorder, unspecified (principal); M89.8X9 Other specified disorders of bone, unspecified site; F20.9 Schizophrenia, unspecified
CPT/HCPCS: 99281

== ENCOUNTER 2018-10-10 22:02 | Emergency (ER) | payer MEDICAID ==
[~2018-10-10] VITALS: Ht 149.9 cm; Wt 52.9 kg
[2018-10-10 22:04] VITALS: BP 120/78
--- NOTE | 2018-10-10 23:26 | NUR ---
CALLED FOR ROOM, NO ANSWER
--- NOTE | 2018-10-10 23:49 | NUR ---
PT AMBULATED WITH STEADY GAIT TO ROOM, URINE SPECIMEN PROVIDED, MD TO ROOM, AWAIT ORDERS.
== END 2018-10-11 00:21 | disposition home or self-care (01) ==
LOC: ED 10-11 00:15
DX: R21 Rash and other nonspecific skin eruption (principal); Z72.9 Problem related to lifestyle, unspecified; F20.9 Schizophrenia, unspecified
CPT/HCPCS: 99281

== ENCOUNTER 2019-08-22 06:26 | Emergency (ER) | payer MEDICAID ==
[~2019-08-22] VITALS: Ht 165.1 cm; Wt 50.0 kg
--- NOTE | 2019-08-22 06:57 | NUR ---
39 Y/O FEMALE PRESENTS TO ED WITH C/O INTOXICATION. PER REPORT PT WAS BROUGHT HERE FROM [facility]. PT WAS GIVEN VERSED AND HALDOL BY EMS. PT RESTING ON GURNICOLE. GEOVANY. VSS. WILL CONTINUE TO MONITOR. RESPS EQUAL AND UNLABORED.
[2019-08-22 07:24] LABS: BASOPHILS # (AUTO) 0.05 x10^3/uL (0-0.1); BASOPHILS % (AUTO) 1 % (0-1); EOSINOPHILS # (AUTO) 0.05 x10^3/uL (0-0.4); EOSINOPHILS % (AUTO) 1 % (1-7); LYMPHOCYTES # (AUTO) 1.29 x10^3/uL (1-3.4); LYMPHOCYTES % (AUTO) 19 % (22-44); MD NO; MEAN CORPUSCULAR HEMOGLOBIN 28.1 pg (27.0-34.8); MEAN CORPUSCULAR HGB CONC 33.2 g/dL (32.4-35.8); MEAN CORPUSCULAR VOLUME 84.6 fL (80-100); MONOCYTES % (AUTO) 6 % (2-9); NEUTROPHILS # (AUTO) 4.88 x10^3/uL (1.8-6.8); NEUTROPHILS % (AUTO) 73 % (42-75); PLATELET COUNT 308 x10^3/uL (130-400); RED BLOOD COUNT 4.47 x10^6/uL (3.82-5.3); RED CELL DISTRIBUTION WIDTH 14.6 % (9.6-15.2)
[2019-08-22 07:35] LABS: ANION GAP 8 mmol/L (5-15); CALCIUM 8.2 mg/dL (8.5-10.1); CHLORIDE 111 mmol/L (98-107); CREATININE 0.89 mg/dL (0.55-1.02)
--- NOTE | 2019-08-22 08:50 | NUR ---
LATE ENTRY FOR 0800 PT SLEEPING ON GURNEY. NADN. RESPS EQUAL AND UNLABORED. WILL CONTINUE TO MONITOR.
--- NOTE | 2019-08-22 08:51 | NUR ---
PT CONTINUES TO SLEEP. RESPS EQUAL AND UNLABORED. VSS. WILL CONTINUE TO MONITOR.
[2019-08-22 10:26] VITALS: BP 101/67
--- NOTE | 2019-08-22 10:27 | NUR ---
LATE ENTRY FOR 1015 PT CONTINUES TO SLEEP ON GURNICOLE. GEOVANY. VSS. WILL CONTINUE TO MONITOR.
--- NOTE | 2019-08-22 11:05 | NUR ---
PT AMBULATORY WITH STEADY GAIT. PT WANTS TO LEAVE. PT REFUSES TO TAKE D/C PAPERWORK.
== END 2019-08-22 11:07 | disposition home or self-care (01) ==
LOC: ED 10:36
DX: F15.122 Other stimulant abuse with intoxication with perceptual disturbance (principal); F15.151 Other stimulant abuse with stimulant-induced psychotic disorder with hallucinations
CPT/HCPCS: 36415; 80048; 80307; 85025; 86705; 86706; 86803; 87340; 87806; 99283; G0475

== ENCOUNTER 2019-10-03 02:03 | Emergency (ER) | payer SELFPAY ==
[~2019-10-03] VITALS: Ht 172.7 cm; Wt 60.0 kg
[2019-10-03] MEDS ORDERED: ZIPRASIDONE 20 MG INJ IM ONE ×2 (02:12→02:30)
--- NOTE | 2019-10-03 02:30 | NUR ---
wang ramirez was called becuase pt wandering around in the cold with only a shirt on. pt rambling, making no sense. pt liting shirt and flashing genitals at staff. pt able to follow some commands but not able to answer questions appropraitely. pt acting very manically, yelling, cussing and punching objects. pt restrained in 4 pt hard locking restraints for pt and staff saftey. sitter at door for monitoring. pt medicated per er md orders.
--- NOTE | 2019-10-03 02:41 | NUR ---
unable to obtain urine due to pt behaviors. will try again later
--- NOTE | 2019-10-03 02:41 | NUR ---
lab unable to obtain blood due to pt behaviors.
--- NOTE | 2019-10-03 02:47 | NUR ---
sitter at doorway for pt monitoring.
--- NOTE | 2019-10-03 03:04 | NUR ---
pt calm and sleeping. 2 lower extremity restraints removed. lab in to draw blood. 2 upper extremity restraints remain.
[2019-10-03 03:10] LABS: BASOPHILS # (AUTO) 0.04 x10^3/uL (0-0.1); BASOPHILS % (AUTO) 0 % (0-1); EOSINOPHILS % (AUTO) 1 % (1-7); LYMPHOCYTES # (AUTO) 1.23 x10^3/uL (1-3.4); LYMPHOCYTES % (AUTO) 12 % (22-44); MD NO; MEAN CORPUSCULAR HGB CONC 33.7 g/dL (32.4-35.8); MEAN CORPUSCULAR VOLUME 83.1 fL (80-100); MEAN PLATELET VOLUME 6.7 fL (7.4-10.4); MONOCYTES # (AUTO) 0.68 x10^3/uL (0.2-0.8); MONOCYTES % (AUTO) 7 % (2-9); NEUTROPHILS # (AUTO) 7.93 x10^3/uL (1.8-6.8); NEUTROPHILS % (AUTO) 80 % (42-75); PLATELET COUNT 332 x10^3/uL (130-400); RED BLOOD COUNT 4.94 x10^6/uL (3.82-5.3); RED CELL DISTRIBUTION WIDTH 15.6 % (9.6-15.2)
[2019-10-03 03:23] LABS: ALANINE AMINOTRANSFERASE 21 U/L (12-78); ALBUMIN 3.7 g/dL (3.4-5.0); ANION GAP 8 mmol/L (5-15); CALCIUM 9.2 mg/dL (8.5-10.1); CHLORIDE 104 mmol/L (98-107); CREATININE 0.69 mg/dL (0.55-1.02)
[2019-10-03 03:24] LABS: SALICYLATE LEVEL < 1.7 mg/dL (2.8-20.0)
[2019-10-03 03:28] LABS: ALKALINE PHOSPHATASE 107 U/L (45-117); BILIRUBIN,TOTAL 0.2 mg/dL (0.2-1.0); TOTAL PROTEIN 7.6 g/dL (6.4-8.2)
--- NOTE | 2019-10-03 03:45 | NUR ---
ALL RESTRAINTS REMOVED.
--- NOTE | 2019-10-03 04:16 | NUR ---
PT RESTING ON GURNEY. EYES CLOSED, RESPIRATIONS EVEN AND UNLABORED. SITTER AT DOORWAY FOR FREQUENT CHECKS.
[2019-10-03 05:27] VITALS: BP 105/55
== END 2019-10-03 06:44 | disposition home or self-care (01) ==
LOC: ED 03:03
DX: F15.221 Other stimulant dependence with intoxication delirium (principal); Z72.9 Problem related to lifestyle, unspecified; F17.210 Nicotine dependence, cigarettes, uncomplicated
CPT/HCPCS: 36415; 80053; 80307; 84703; 85025; 99283; 99406; J3486

== ENCOUNTER 2020-01-03 18:29 | Emergency (ER) | payer SELFPAY ==
[~2020-01-03] VITALS: Ht 165.1 cm; Wt 60.0 kg
--- NOTE | 2020-01-03 18:53 | NUR ---
PATIENT WAS GIVEN A SHIRT, THIS RN CAME BACK WITH DISCHARGE PAPERWORK AND PATIETN HAD LEFT. SECURITY STATED THEY SAW HER WALK OFF PROPERTY
== END 2020-01-03 18:55 ==
LOC: EDBD → MERGE 18:29 → ED 18:51
DX: F15.10 Other stimulant abuse, uncomplicated (principal); F22 Delusional disorders
CPT/HCPCS: 99283

== ENCOUNTER 2020-02-29 17:02 | Emergency (ER) | payer SELFPAY ==
[~2020-02-29] VITALS: Ht 157.5 cm; Wt 55.0 kg
--- NOTE | 2020-02-29 17:26 | NUR ---
Agus RN note: Pt provided with warm blanket per request. Meal tray ordered for pt.
--- NOTE | 2020-02-29 17:29 | NUR ---
AFTER TRIAGING PT AND PREPARING TO SECURE PT'S BELONGINGS, PT WALKED OVER TO COUNTER AND TOOK A CIGARETTE AND CREEL CLEANER OUT OF BAG. PT PUT IT BACK ON COUNTER ON DIRECTION TO DO SO. CLAY TOWNSEND AT BEDSIDE. PT HOSTILE AND WILL NOT TALK TO CLAY. PT REFUSING TO TAKE CLOTHES OFF AND CALLING THIS RN A BITCH AND THE "C" WORD. SECURITY CALLED AND AT DOOR. PT THEN REMOVED HER CLOTHES AND GOT IN GURNEY. PT STATED SHE JUST SAID SHE WAS SUICIDAL BECAUSE SHE WANTED TO GET OUT OF CUSTODIAL. BELONGINGS SECURED IN LOCKER AND EQUIPMENT SECURED BEHIND PULL DOWN DOORS. SITTER IN DIRECT VIEW OF PT
[2020-02-29] MEDS ORDERED: ZIPRASIDONE 20 MG INJ IM ONE (17:30)
--- NOTE | 2020-02-29 18:03 | NUR ---
patient eating at this time and being more cooperative. urine sent to lab.
[2020-02-29 18:12] VITALS: BP 128/78
[2020-02-29 18:13] LABS: BASOPHILS # (AUTO) 0.04 x10^3/uL (0-0.1); BASOPHILS % (AUTO) 1 % (0-1); EOSINOPHILS # (AUTO) 0.14 x10^3/uL (0-0.4); EOSINOPHILS % (AUTO) 2 % (1-7); LYMPHOCYTES # (AUTO) 1.99 x10^3/uL (1-3.4); LYMPHOCYTES % (AUTO) 27 % (22-44); MD NO; MEAN CORPUSCULAR HGB CONC 33.4 g/dL (32.4-35.8); MEAN PLATELET VOLUME 6.7 fL (7.4-10.4); MONOCYTES # (AUTO) 0.48 x10^3/uL (0.2-0.8); MONOCYTES % (AUTO) 6 % (2-9); NEUTROPHILS # (AUTO) 4.81 x10^3/uL (1.8-6.8); NEUTROPHILS % (AUTO) 65 % (42-75); PLATELET COUNT 342 x10^3/uL (130-400); RED BLOOD COUNT 5.42 x10^6/uL (3.82-5.3); RED CELL DISTRIBUTION WIDTH 13.1 % (9.6-15.2)
--- NOTE | 2020-02-29 18:13 | NUR ---
got patient meal tray she ate it all. checked with dante who triaged patient and the police that brought her states she is free to go if discharged, they are done with her. will discharge. aox4. patient discharge reviewed.
[2020-02-29 18:16] LABS: AMPHETAMINE SCREEN, URINE Positive (Negative); BARBITURATE SCREEN, URINE Negative (Negative); BENZODIAZEPINE SCREEN, URINE Negative (Negative); CANNABINOID SCREEN, URINE Positive (Negative); COCAINE SCREEN, URINE Negative (Negative); METHADONE SCREEN, URINE Negative (Negative); OPIATE SCREEN, URINE Negative (Negative)
[2020-02-29 18:25] LABS: ALBUMIN 3.4 g/dL (3.4-5.0); ANION GAP 3 mmol/L (5-15); CALCIUM 8.5 mg/dL (8.5-10.1); CHLORIDE 109 mmol/L (98-107); SALICYLATE LEVEL 2.4 mg/dL (2.8-20.0)
== END 2020-02-29 18:27 | disposition home or self-care (01) ==
LOC: ED 18:25
DX: F30.10 Manic episode without psychotic symptoms, unspecified (principal); F20.9 Schizophrenia, unspecified
CPT/HCPCS: 36415; 80048; 80307; 82040; 84703; 85025; 99284

== ENCOUNTER 2020-04-24 23:59 | Emergency (ER) | payer SELFPAY ==
[~2020-04-24] VITALS: Ht 149.9 cm; Wt 50.0 kg
--- NOTE | 2020-04-25 00:17 | NUR ---
BIBA. Refuses to answer questions, continues to respond with "no" to all of this RN's questions. Per EMS, pt was acting erratically and was called in by yi ford. Pt became combative for EMS, give 5 mg IM versed in route. Upon arrival to ED, pt does not appear to be acting violently. Provider at bedside upon arrival to ED. Provided pt with snack and warm blankets. Agreeable to tele/VS. 2L NC applied for O2 sat 88% RA with good effect. Pt touching herself inappropriately and making inappropriate sexual statements to all males who enter the room. Multiple reminders from this RN to pt to cease inappropriate comments/behavior.
--- NOTE | 2020-04-25 00:50 | NUR ---
Pt resting comfortably on stretcher. NSR noted on monitor. Pt removed NC, O2 remains high 90s RA. Bed low, side rails up, bed brake on, call lang within reach
[2020-04-25 01:55] VITALS: BP 105/64
--- NOTE | 2020-04-25 03:36 | NUR ---
Pt removed tele leads and O2 sat. Allowed this RN to take set of VS, refuses continuous monitoring. VSS. Bed low, bed brakes on, side rails up, call light within reach. Instructed pt to utilize call light to get OOB
--- NOTE | 2020-04-25 05:06 | NUR ---
Pt refuses d/c instructions, d/c VS, and taxi voucher. Ambulating independently, steady gait
== END 2020-04-25 05:08 | disposition home or self-care (01) ==
LOC: ED 04-25 00:29
DX: F15.151 Other stimulant abuse with stimulant-induced psychotic disorder with hallucinations (principal); F17.210 Nicotine dependence, cigarettes, uncomplicated; Z72.9 Problem related to lifestyle, unspecified
CPT/HCPCS: 99283; 99406